=== PATIENT | female | born 1960 | race Caucasian/White ===

== ENCOUNTER → 2019-04-22 | Outpatient (CLI) | payer BC ==
--- NOTE | 2019-04-22 09:38 | Diagnostic Imaging Report ---
Indication: Left clavicle pain 2 views of the left clavicle shows no acute fracture or dislocation. There may be some callus of the distal 3rd clavicle suggesting healing fracture. IMPRESSION: Suspect old healed fracture of the distal shaft of the left clavicle. Dictated by: Dictated on workstation # [id number]
== END ==
LOC: RAD FS 09:15
PROVIDERS: ATTEND Nurse Practitioner Family
DX: M95.8 Other specified acquired deformities of musculoskeletal system (principal); M25.512 Pain in left shoulder
CPT/HCPCS: 73000

== ENCOUNTER → 2019-07-10 | Outpatient (CLI) | payer BC ==
[~2019-07-10] MED LIST: CATHETER FLUSH 10 ML SYR IV PRN; DIATRIZOATE MEGLUM/SODIUM 37% 120 ML (GASTROGRAFIN) PO ONE; HOLD METFORMIN - RECEIVED CONTRAST 20 ML VIAL IV SCH; IOHEXOL 350 MG/ML 100 ML (OMNIPAQUE 350) VIAL IV ONE; NS 100 ML (IVPB) BAG IV ONE
[2019-07-10 13:41] LABS: BUN/CREATININE RATIO 18; CREATININE SERUM 0.61 MG/DL (0.60-1.30); GFR ESTIMATED > 60
--- NOTE | 2019-07-10 14:27 | Diagnostic Imaging Report ---
PROCEDURE: CT abdomen and pelvis with and without contrast. TECHNIQUE: Precontrast acquisitions were acquired through the abdomen and pelvis. Multiple contiguous axial images were obtained through the abdomen and pelvis after the administration of intravenous contrast. Auto Exposure Controls were utilized during the CT exam to meet ALARA standards for radiation dose reduction. INDICATION: Ovarian mass noted on outside ultrasound. COMPARISON: Patient's outside study is not available for direct comparison. FINDINGS: The lung bases are clear. Liver contains several circumscribed low densities in both right and left lobes, suggestive of cysts. Largest is approximately 11 mm in size. Gallbladder is unremarkable. There is no biliary ductal dilatation. The pancreas and spleen are unremarkable. No adrenal mass is detected. There are numerous nonobstructing calculi involving bilateral kidneys. No hydronephrosis is detected. Aorta is nonaneurysmal. There is a large septated primarily cystic mass in the midline pelvis extending into the lower abdomen. This displaces the uterus to the right. Mass measures approximately 12.2 cm cephalocaudal x 15 cm transverse x 13.8 cm AP. This is likely ovarian in etiology. The bladder is unremarkable. No definite abdominal or pelvic lymphadenopathy is seen. There is diverticulosis throughout the sigmoid and descending colon but no evidence of acute diverticulitis. There is no free fluid. IMPRESSION: 1. Large, septated cystic mass in the pelvis, as described. This is likely ovarian in etiology and ovarian neoplasm is suspected. No definite evidence of ascites or peritoneal carcinomatosis is seen. 2. Uncomplicated diverticulosis. 3. Hepatic low densities suggestive of cysts. 4. Nonobstructing bilateral nephrolithiasis. Dictated by: Dictated on workstation # [id number]
== END ==
LOC: RAD FS 12:19
PROVIDERS: ATTEND Urology
DX: N83.202 Unspecified ovarian cyst, left side (principal); K57.30 Diverticulosis of large intestine without perforation or abscess without bleeding; K76.89 Other specified diseases of liver; N20.0 Calculus of kidney
CPT/HCPCS: 36415; 74178; 82565; 84520